=== PATIENT | male | born 1990 | race African-American/Black ===

== ENCOUNTER 2020-07-22 23:35 | Emergency (ER) | payer MEDICAID, OTHER ==
[~2020-07-22] VITALS: Ht 180.3 cm; Wt 79.4 kg
[~2020-07-22 23:35] MED LIST: FENT100T TD; FOLI1TAB19 PO; HYDR2TAB6 PO; HYDR500C PO
[2020-07-22 23:43] VITALS: BP 128/78
--- NOTE | 2020-07-22 23:43 | NUR ---
TO BED AMBULATORY
--- NOTE | 2020-07-22 23:55 | NUR ---
PATIENT 29 Y/O FEMALE BIB SELF FOR C/O "SICKCLE CELL CRISIS." PATIENT A&O X4, AND VERBALIZES C/O GENERALIZED BODY ACHES 8/10 X 2 DAYS. PER PATIENT TOOK DILAUDID 4MG X 4 HOURS AGO WITH MINIMAL PAIN RELEIF. PATIENT RESPIRATIONS ARE EVEN AND UNLABORED, SKIN IS WARM AND DRY TO TOUCH. DENIES N/V/D. SEE COMPLETE ASSESSMENT FOR FURTHER DETAILS. 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 ALLERGIES: VANCOMYCIN
--- NOTE | 2020-07-23 00:12 | NUR ---
Hugo nieves in [facility] - 07/23/[address] at [address] Moore examining patient.
--- NOTE | 2020-07-23 00:12 | NUR ---
ERMD EVALUATING PATIENT AT BEDSIDE.
--- NOTE | 2020-07-23 00:21 | NUR ---
PATIENT REFUSED TO HAVE LABS DRAWN UNTIL HE GETS AN IV VIA ULTRASOUND PLACED.
--- NOTE | 2020-07-23 01:05 | NUR ---
Dr. Moore at patient bedside.
[2020-07-23 01:19] LABS: BASOPHILS # (AUTO) 0.1 K/uL (0.00-0.22); BASOPHILS % (AUTO) 1.2 % (0.0-2.0); EOSINOPHILS # (AUTO) 0.1 K/uL (0-0.4); HEMATOCRIT 36.8 % (36-52); HEMOGLOBIN 12.5 g/dL (12.0-18.0); LYMPHOCYTES # (AUTO) 2.4 K/uL (2.0-11.5); MEAN CORPUSCULAR HEMOGLOBIN 35 pg (27-31); MEAN CORPUSCULAR HGB CONC 34 g/dL (33-37); MONOCYTES # (AUTO) 1.1 K/uL (0.8-1.0); MONOCYTES % (AUTO) 15.8 % (1.7-9.3); NEUTROPHILS # (AUTO) 3.2 K/uL (1.8-7.7); PLATELET COUNT (AUTO) 343 K/uL (140-450); RED BLOOD CELL COUNT(AUTO) 3.61 MIL/uL (4.20-6.10); RED CELL DISTRIBUTION WIDTH 15.7 % (11.6-13.7)
[2020-07-23] MEDS ORDERED: fentaNYL citrate 0.05 MG/ML VIAL ONE (01:19)
--- NOTE | 2020-07-23 01:20 | NUR ---
ATTEMPTED TO PLACE IV IN PATIENT BUT UNSUCESSFUL. MARQUEZD MADE AWARE AND EJ PLACED BY ADELA. LABS DRAWN AND GIVEN TO Ende[employer] CommerceCUSTOMER EXPERIENCE LEADER.
--- NOTE | 2020-07-23 01:20 | NUR ---
Note [email or web address] in EDM - 07/23/20 at 0143 by NIKI ATTEMPTED TO PLACE IV IN PATIENT BUT UNSUCESSFUL. ADELA MADE AWARE AND EJ PLACED BY ADELA. LABS DRAWN AND GIVEN TO FanzyDIVISION FIELD INSPECTOR.
[2020-07-23] MEDS: NACL 0.9% 1,000 ML IV ONE (01:25)
[2020-07-23] MEDS: fentaNYL citrate 0.05 MG/ML VIAL IVP ONE ×2 (01:34→02:15)
[2020-07-23 01:36] LABS: ALBUMIN 3.6 g/dL (3.4-5.0); ANION GAP 11.9 (8-16); CARBON DIOXIDE 28.1 mmol/L (21-32); CREATININE 0.6 mg/dL (0.6-1.3); TOTAL BILIRUBIN 0.4 mg/dL (0.0-1.0)
--- NOTE | 2020-07-23 01:55 | NUR ---
PATIENT STATES THAT GENERALIZED BODY ACHES 8/10 HAS NOT BEEN RELIVED BY FENTYNYL AND IS CURRENTLY 7/10. PATIENT REQUESTING DILAUDID. ERMD MADE AWARE AND GAVE NEW ORDERS FOR FENTANYL.
[2020-07-23] MEDS: POTASSIUM CHLORIDE 10 MEQ TABER PO ONE (02:16)
--- NOTE | 2020-07-23 02:36 | NUR ---
Pt c/o of itchiness after medication administration. ERMD made aware.
[2020-07-23] MEDS: diphenhydrAMINE 50 MG/ML VIAL IVP ONE (02:45)
--- NOTE | 2020-07-23 03:01 | NUR ---
PT AMBUALTED TO RESTROOM. STEADY GAIT OBSERVED
--- NOTE | 2020-07-23 03:30 | NUR ---
ERMD MADE AWARE THAT PATIENT PAIN UNRELIVED BY FENTANYL. NO NEW ORDERS GIVEN AT THIS TIME.
--- NOTE | 2020-07-23 03:49 | NUR ---
IV removed, catheter intact and site benign. Applied folded 4x4 gauze and tape to stop bleeding.
[2020-07-23 03:50] VITALS: BP 126/88
--- NOTE | 2020-07-23 03:50 | NUR ---
Patient discharged with v/s stable. Written and verbal after care instructions given and explained. Patient verbalized understanding. Ambulatory with steady gait. All questions addressed prior to discharge. Advised to follow up with PMD.
== END 2020-07-23 03:50 | disposition home or self-care (01) ==
LOC: MED 23:35
DX: D57.1 Sickle-cell disease without crisis (principal); J45.909 Unspecified asthma, uncomplicated; Z88.1 Allergy status to other antibiotic agents; Z88.8 Allergy status to other drugs, medicaments and biological substances; Z79.899 Other long term (current) drug therapy
CPT/HCPCS: 36415; 80053; 85025; 96361; 96374; 96375; 96376; 99284; J1200; J3010; J7030

== ENCOUNTER 2020-07-31 17:17 | Emergency (ER) | payer OTHER ==
[~2020-07-31] VITALS: Ht 180.3 cm; Wt 79.4 kg
[2020-07-31 17:19] VITALS: BP 121/53
[2020-07-31] MEDS ORDERED: diphenhydrAMINE 50 MG/ML VIAL IVP ONE ×2 (18:05→19:30)
[2020-07-31] MEDS ORDERED: MORPHINE SULFATE 10 MG/ML VIAL IVP ONE (18:05)
[2020-07-31] MEDS ORDERED: NACL 0.9% 1,000 ML IV ONE (18:05)
[2020-07-31 18:44] LABS: APPEARANCE,URINE CLEAR (CLEAR); BILIRUBIN,URINE NEGATIVE (NEGATIVE); BLOOD, URINE NEGATIVE (NEGATIVE); COLOR,URINE YELLOW (YELLOW); LEUKOCYTE ESTERASE ,URINE NEGATIVE (NEGATIVE); NITRITE, URINE NEGATIVE (NEGATIVE); UGLUCOSE NEGATIVE (NEGATIVE)
[2020-07-31 19:03] LABS: BASOPHILS % (AUTO) 0.5 % (0.0-2.0); EOSINOPHILS % (AUTO) 0.4 % (0.0-4.0); HEMATOCRIT 42.4 % (36-52); HEMOGLOBIN 14.4 g/dL (12.0-18.0); LYMPHOCYTES # (AUTO) 1.4 K/uL (2.0-11.5); LYMPHOCYTES % (AUTO) 20.8 % (20.5-51.1); MEAN CORPUSCULAR HEMOGLOBIN 35 pg (27-31); MEAN CORPUSCULAR HGB CONC 34 g/dL (33-37); MEAN CORPUSCULAR VOLUME 102.1 fL (80-94); MONOCYTES # (AUTO) 0.7 K/uL (0.8-1.0); MONOCYTES % (AUTO) 10.2 % (1.7-9.3); NEUTROPHILS # (AUTO) 4.7 K/uL (1.8-7.7); NEUTROPHILS % (AUTO) 68.1 % (42.2-75.2); PLATELET COUNT (AUTO) 405 K/uL (140-450); RED BLOOD CELL COUNT(AUTO) 4.16 MIL/uL (4.20-6.10); RED CELL DISTRIBUTION WIDTH 15.7 % (11.6-13.7); WHITE BLOOD COUNT (AUTO) 6.9 K/uL (4.8-10.8)
[2020-07-31 19:14] LABS: ANION GAP 13.6 (8-16); CARBON DIOXIDE 25.4 mmol/L (21-32); CREATININE 0.7 mg/dL (0.6-1.3); TOTAL BILIRUBIN 0.3 mg/dL (0.0-1.0)
--- NOTE | 2020-07-31 19:22 | NUR ---
RECIVED REPORT FROM SANDRA INGRAM, CONTINUATION OF CARE.
[2020-07-31] MEDS ORDERED: MORPHINE SULFATE 4 MG/ML SYR IVP ONE (19:30)
[2020-07-31] MEDS ORDERED: AZITHROMYCIN 500 MG in DEXTROSE 5% 250 ML IV ONE (19:30)
--- NOTE | 2020-07-31 19:32 | NUR ---
Hugo nieves in ED - 07/31/[address] at [address] SYED AT BEDSIDE EVALUATING PATIENT. EDIL ANTIGEN COLLECTED AND SENT TO LAB.
--- NOTE | 2020-07-31 19:34 | NUR ---
AT BEDSIDE EVALUATING PATIENT. EDIL ANTIGEN COLLECTED AND SENT TO LAB.
[2020-07-31] MEDS ORDERED: AZITHROMYCIN 500 MG INJ VIAL IV ONE (19:46)
[2020-07-31] MEDS ORDERED: cefTRIAXone 1,000 MG VIAL ONE (19:47)
[2020-07-31] MEDS ORDERED: LEVO0.2T5 PO (20:43)
[2020-07-31] MEDS ORDERED: FOLI2000 PO (20:43)
[2020-07-31] MEDS ORDERED: HYDR2TAB6 PO (20:43)
[2020-07-31] MEDS ORDERED: FENT100T TD (20:43)
[2020-07-31] MEDS ORDERED: HYDR500C PO (20:43)
[2020-07-31] MEDS ORDERED: KETAMINE 10 MG/ML UD SYR **ER IVP ONE ×2 (21:15→23:00)
[2020-07-31] MEDS ORDERED: KETAMINE 500 MG/5 ML VIAL ONE ×2 (21:41→23:07)
--- NOTE | 2020-07-31 22:35 | NUR ---
PATIENT STATES PAIN REDUCED FROM 10/10 TO 7/10. ERMD MADE AWARE, NO NEW ORDERS GIVEN AT THIS TIME. VSS.
[2020-08-01 00:18] VITALS: BP 121/78
--- NOTE | 2020-08-01 20:52 | NUR ---
LATE ENTRY-- ROCEPHIN IVPB DISCONTINUED AT 2105
== END 2020-08-01 00:21 | disposition home or self-care (01) ==
LOC: MED 17:17
DX: M79.10 Myalgia, unspecified site (principal); D57.1 Sickle-cell disease without crisis; M54.9 Dorsalgia, unspecified; M25.519 Pain in unspecified shoulder; J45.909 Unspecified asthma, uncomplicated; Z90.49 Acquired absence of other specified parts of digestive tract; Z79.899 Other long term (current) drug therapy; Z88.1 Allergy status to other antibiotic agents; Z88.8 Allergy status to other drugs, medicaments and biological substances
CPT/HCPCS: 36415; 71045; 80053; 81003; 83605; 85025; 85045; 87040; 87426; 96361; 96365; 96375; 96376; 99284; J0456; J0696; J1200; J2270; J7030

== ENCOUNTER 2020-08-04 03:01 | Emergency (ER) | payer OTHER ==
[~2020-08-04] VITALS: Ht 180.3 cm; Wt 80.7 kg
[~2020-08-04 03:01] MED LIST changes: +FOLI2000 PO; +LEVO0.2T5 PO
[2020-08-04 03:12] VITALS: BP 115/82
--- NOTE | 2020-08-04 03:19 | NUR ---
PT AMBULATED TO BED 9.
--- NOTE | 2020-08-04 03:20 | NUR ---
PT PROVIDED BLANKETS.
--- NOTE | 2020-08-04 03:21 | NUR ---
29 YR OLD MALE PRESENTED TO THE ER WITH CC OF TOTAL BODY PAIN. PT IS AOX4. PT STATES 8/10 NON-RADIATING THROBBING TOTAL BODY PAIN THAT STARTED 2 DAYS AGO. PT STATES TOTAL BODY PAIN IS POSSIBLY DUE TO HIS SICKLE CELL CONDITION. PT DENIES NAUSEA, DENIES VOMITING, AND DENIES OTHER MEDICAL COMPLAINTS. BED IS LOCKED IN LOWEST POSITION. WILL CONTINUE TO MONITOR. HISTORY- ASTHMA, AVASCULAR NECROSIS, HYPOTHYROIDISM, AND SICKLE CELL ALLERGIES- VANCOMYCIN
--- NOTE | 2020-08-04 03:28 | NUR ---
ERMD AT BEDSIDE FOR MEDICAL EVALUATION.
[2020-08-04] MEDS ORDERED: MORPHINE SULFATE 10 MG/ML VIAL IVP ONE (03:30)
[2020-08-04] MEDS ORDERED: NACL 0.9% 1,000 ML IV ONE (03:30)
--- NOTE | 2020-08-04 04:06 | NUR ---
COSMETIC DENTIST AT BEDSIDE.
--- NOTE | 2020-08-04 04:12 | NUR ---
FOOT WORKER UNABLE TO OBTAIN BLOOD DRAW. PT REFUSED BLOOD DRAW. ERMD AWARE.
--- NOTE | 2020-08-04 04:17 | NUR ---
VIDEO PLAYER MECHANIC AT BEDSIDE.
--- NOTE | 2020-08-04 04:22 | NUR ---
PT STATES FEELING ITCHY ALL OVER. ERMD AWARE.
--- NOTE | 2020-08-04 04:22 | NUR ---
PT STATES DID NOT DRIVE SELF AND HAS SOMEONE TO DRIVE PT HOME.
[2020-08-04] MEDS ORDERED: diphenhydrAMINE 50 MG/ML VIAL IVP ONE (04:25)
--- NOTE | 2020-08-04 05:14 | NUR ---
PT FOUND AWAKE IN SEMI-MORGAN'S POSITION IN BED. PT STATES NO NAUSEA, PT STATES NO VOMITING, PT STATES NO ITCHING, AND PT STATES NO OTHER MEDICAL COMPLAINTS. BED LOCKED IN LOWEST POSTIION WITH 1 SIDE RAIL UP.
[2020-08-04 05:20] VITALS: BP 115/70
--- NOTE | 2020-08-04 05:20 | NUR ---
IV removed, catheter intact and site benign. Applied folded 4x4 gauze and tape to stop bleeding.
== END 2020-08-04 05:20 | disposition home or self-care (01) ==
LOC: MED 03:01
DX: D57.1 Sickle-cell disease without crisis (principal); G89.29 Other chronic pain; M79.10 Myalgia, unspecified site; F11.10 Opioid abuse, uncomplicated; J45.909 Unspecified asthma, uncomplicated; Z88.1 Allergy status to other antibiotic agents; Z79.899 Other long term (current) drug therapy
CPT/HCPCS: 71045; 96361; 96374; 96375; 99284; J1200; J2270; J7030

== ENCOUNTER 2020-09-05 04:35 | Emergency (ER) | payer OTHER ==
[~2020-09-05] VITALS: Ht 180.3 cm; Wt 79.4 kg
[2020-09-05 04:36] VITALS: BP 117/65
--- NOTE | 2020-09-05 04:36 | NUR ---
TO BED AMBULATORY
--- NOTE | 2020-09-05 04:40 | NUR ---
TO BED 3 FROM TRIAGE WITH C/O COUGH. PT STATES "I HAVE BRONCHITIS" "I WAS SEEN 3 DAYS AGO IN URGENT CARE. THEY GAVE ME TESILON PERLES AND ROBITUSSIN, BUT IM STILL COUGHING" OCCASIONAL DRY COUGH NOTED. PT ALSO STATES HE TESTED (-) FOR COVID
[2020-09-05] MEDS ORDERED: ALBUTEROL HFA MDI 90 MCG/ACTUATION 8 GM INH ONE (05:20)
--- NOTE | 2020-09-05 05:20 | NUR ---
EDIL SWAB OBTAINED AND SENT TO LAB
[2020-09-05] MEDS ORDERED: AZIT250T3 PO (05:52)
[2020-09-05 05:58] VITALS: BP 117/65
--- NOTE | 2020-09-05 05:58 | NUR ---
Patient discharged with v/s stable. Written and verbal after care instructions given and explained. Patient alert, oriented and verbalized understanding of instructions. Ambulatory with steady gait. All questions addressed prior to discharge. ID band removed. Patient advised to follow up with PMD. Rx of ZITHROMAX given. Patient educated on indication of medication including possible reaction and side effects. Opportunity to ask questions provided and answered.
== END 2020-09-05 05:58 | disposition home or self-care (01) ==
LOC: MED 04:35
DX: R05 Cough (principal); Z20.822 Contact with and (suspected) exposure to COVID-19; J45.909 Unspecified asthma, uncomplicated; E07.9 Disorder of thyroid, unspecified; Z88.1 Allergy status to other antibiotic agents; Z79.899 Other long term (current) drug therapy
CPT/HCPCS: 71045; 99284